=== PATIENT | female | born 1960 | race Caucasian/White ===

== ENCOUNTER 2017-06-02 15:16 | Outpatient (CLI) | payer OTHER ==
--- NOTE | 2017-06-02 17:58 | MRI ---
MRI RIGHT SHOULDER 06/02/17 HISTORY: Right shoulder pain, M25.511. COMPARISON: None. FINDINGS: BICEPS TENDON: There is a chronic rupture of the extra-articular biceps tendon with tendon retracted along the anter ior humeral shaft. There is a cap between tendinous tissue approximately 5.5 cm with tendon seen on t he coronal images at the proximal diaphysis. There is extensive tendinosis of the intra-articular bic eps tendon. GLENOID LABRUM: There is severe degenerative tearing throughout the superior labrum extending to the posterior superi or labrum extending to the posterior superior labrum. ROTATOR CUFF: Extensive tendinosis of the subscapularis with thickening. There is undersurface partial tearing of t he supraspinatus and infraspinatus tendons just proximal to the footprint approximately 30-40% unders urface partial tearing. No full thickness perforation. There is bursal surface fraying of the supraspinatus tendon, thickening coracoacromial ligament and k eel osteophyte. The subacromial space is narrowed approximately 5 mm. BONES: Large subchondral cyst of the lesser tuberosity indicating a chronic increased motion of the biceps t endon likely before it had torn. MUSCLES: Muscle bulk is normal. IMPRESSION: 1. Rupture of the biceps tendon at the intertubercular groove with a 5.5 cm gap. The intra-artic ular tendon fibers are severely tendinotic with fibers extending proximal to the intertubercular groo ve before the gap is seen. 2. Severe tendinosis of the subscapularis extensive interstitial tearing. 3. 30-40% undersurface partial tearing of the supraspinatus and infraspinatus tendons just proxi mal to the footprint. No full thickness perforation. 4. Moderate bursal surface fraying of the supraspinatus tendon due to thickened coracoacromial l igament as well as keel osteophyte. 5. Moderate degenerative disease acromioclavicular joint. 6. Large subchondral cyst lesser tuberosity likely sequela of chronic motion of the biceps tendo n before it had torn. POS: [id number]
== END 2017-06-02 15:17 | disposition home or self-care (01) ==
LOC: MRI 15:16
PROVIDERS: ATTEND Orthopaedic Surgery
DX: M25.511 Pain in right shoulder (principal); S46.211A Strain of muscle, fascia and tendon of other parts of biceps, right arm, initial encounter; S46.811A Strain of other muscles, fascia and tendons at shoulder and upper arm level, right arm, initial encounter; M25.711 Osteophyte, right shoulder; M19.011 Primary osteoarthritis, right shoulder; M67.88 Other specified disorders of synovium and tendon, other site

== ENCOUNTER 2017-09-07 08:44 | Outpatient (CLI) | payer OTHER ==
--- NOTE | 2017-09-07 14:47 | MMO ---
BILATERAL DIGITAL SCREENING MAMMOGRAMS: Date: 09/07/17 This patient's mammogram was interpreted with the assistance of computer-aided detection. Comparison made with exams of 04/23/15 and 04/05/14. FINDINGS: There are scattered fibroglandular densities. No suspicious masses, calcifications, or architectural distortion seen. IMPRESSION: BIRADS 1: Negative Return to annual mammographic screening. POS: SHAYY
== END 2017-09-07 08:45 | disposition home or self-care (01) ==
LOC: SCSMAMMO 08:44
PROVIDERS: ATTEND Family Medicine
DX: Z12.31 Encounter for screening mammogram for malignant neoplasm of breast (principal)
CPT/HCPCS: 77067

== ENCOUNTER 2018-01-07 12:21 | Outpatient (CLI) | payer OTHER ==
[2018-01-07 13:20] LABS: #Basophils 0.1 thou/uL (0.0-0.2); #Eosinphils 0.3 thou/uL (0.0-0.7); #Lymphocytes 3.4 thou/uL (1.20-3.40); #Monocytes 0.7 thou/uL (0.11-0.59); #Neutrophils 5.5 thou/uL (1.40-6.50); %Basophils 0.9 % (0.0-1.0); %Eosinophils 2.8 % (0.0-10.0); %Lymphocytes 34.1 % (21.0-51.0); %Monocytes 7.2 % (0.0-10.0); %Neutrophils 55.1 % (42.0-75.0); Hemoglobin 14.5 g/dL (12.0-16.0); Mean Corpuscular HGB CONC 33.9 g/dL (32.0-36.0); Mean Corpuscular Hemoglobin 33.7 pg (27.0-31.0); Mean Corpuscular Volume 99.4 fL (78.0-98.0); Mean Platelet Volume 8.2 fL (7.4-10.4); Platelet Count 289 thou/uL (130-400); RBC Distribution Width 10.4 % (11.5-14.5); Red Blood Cell (RBC) Count 4.29 mill/uL (4.20-5.40); White Blood Cell (WBC) Count 9.9 thou/uL (4.8-10.8)
[2018-01-07 13:41] LABS: Anion Gap 10 mmol/L (10-20); BUN (Urea Nitrogen) 16 mg/dL (9.8-20.1); Calc. Creatinine Clearance 0 mL/min (70-130); Calcium 9.5 mg/dL (7.8-10.44); Carbon Dioxide 27 mmol/L (22-29); Chloride 103 mmol/L (98-107); Estimated GFR-MDRD 64; Glucose 122 mg/dL (70-105); Potassium 3.9 mmol/L (3.5-5.1); Sodium 136 mmol/L (136-145)
== END 2018-01-07 12:22 | disposition home or self-care (01) ==
LOC: LABBT 12:21
PROVIDERS: ATTEND Orthopaedic Surgery
DX: Z01.812 Encounter for preprocedural laboratory examination (principal); M75.101 Unspecified rotator cuff tear or rupture of right shoulder, not specified as traumatic
CPT/HCPCS: 80048; 85025; 93005; 93010

== ENCOUNTER 2018-01-14 06:47 | Day surgery (SDC) | payer OTHER ==
[2018-01-07 12:28] VITALS: BMI 23.0
[2018-01-14] MEDS ORDERED: CEFAZOLIN/Water 2 GM/20 ML SYRINGE ONE (07:31)
[2018-01-14] MEDS ORDERED: Midazolam HCl 2 mg/2 ml Vial ONE ×2 (07:37→08:18)
[2018-01-14] MEDS ORDERED: Fentanyl 100 MCG/2 ML VIAL ONE ×4 (07:37→11:45)
[2018-01-14] MEDS ORDERED: Ropivacaine 0.5% HCl/PF (150 MG/30 ML VIAL) ONE (08:14)
[2018-01-14] MEDS ORDERED: Ropivacaine 0.2% HCl/PF (40 MG/20 ML VIAL) ONE (08:14)
[2018-01-14] MEDS ORDERED: Ropivacaine 0.2% 550 ML 550 ML NERVE BLCK SCH (08:21)
[2018-01-14] MEDS ORDERED: traMADol HCl 50 MG TAB PO PRN ×2 (08:21)
[2018-01-14] MEDS ORDERED: Zolpidem Tartrate 5 MG TAB PO PRN (08:21)
[2018-01-14] MEDS ORDERED: Ondansetron HCl/PF 4 MG/2 ML Vial IVP PRN (08:21)
[2018-01-14] MEDS ORDERED: HYDROcodone/Acetaminophen 10/325 mg Tablet PO PRN ×2 (08:21)
[2018-01-14] MEDS ORDERED: Promethazine HCl 25 MG/ML VIAL IM PRN (08:21)
[2018-01-14] MEDS ORDERED: Ketorolac Tromethamine 30 MG/ML VIAL IVP PRN (08:21)
[2018-01-14] MEDS ORDERED: Fentanyl 100 MCG/2 ML VIAL IV PRN (08:22)
--- NOTE | 2018-01-14 11:32 | OP ---
DATE OF PROCEDURE: 01/14/2018 PREOPERATIVE DIAGNOSES: Rotator cuff tear right shoulder with impingement. POSTOPERATIVE DIAGNOSES: Rotator cuff tear right shoulder with impingement. PROCEDURE: Arthroscopic subacromial decompression, arthroscopic rotator cuff repair. SURGEON: Saurav Gates M.D. ANESTHESIA: General. BLOOD LOSS: Minimal. SPECIMENS: None. DRAINS: None. COMPLICATIONS: None. NARRATIVE REPORT: The patient was taken to the operating room where general anesthesia was induced. Placed the patient in the left lateral decubitus position. Right arm was placed in 15 pounds of tra ction. Scope was placed in the glenohumeral joint. There was no arthritis, the biceps tendon was co mpletely avulsed and there was no remaining tendon in the joint, so therefore no tenotomy or tenodesi s was indicated. Full thickness rotator cuff tear was identified. Scope was placed in the subacromi al bursa, there was very thick tenacious bursitis. Bursectomy was performed. CA ligament was taken down. Anterior inferior acromioplasty was performed. I freshened up the greater tuberosity. I plac ed a corkscrew suture device through the greater tuberosity. Sutures passed through the rotator cuff and tied with a good watertight repair then reinforced with a double row technique using a SwiveLock . Shoulder was then drained. Portals closed with nylon suture. Sterile dressings applied. There w ere no complications.
[2018-01-14] MEDS ORDERED: Ketorolac Tromethamine 30 MG/ML VIAL ONE (11:47)
[2018-01-14] MEDS ORDERED: PROPOFOL 200 MG/20 ML VIAL ONE (11:58)
[2018-01-14] MEDS ORDERED: Ondansetron HCl/PF 4 MG/2 ML Vial ONE (11:58)
== END 2018-01-14 13:25 | disposition home or self-care (01) ==
LOC: SDC 06:47
PROVIDERS: ATTEND Orthopaedic Surgery
PROC: 0LM14ZZ Reattachment of Right Shoulder Tendon, Percutaneous Endoscopic Approach (ICD-10-PCS; principal; 2018-01-14)
PROC: 0RNJ4ZZ Release Right Shoulder Joint, Percutaneous Endoscopic Approach (ICD-10-PCS; principal; 2018-01-14)
DX: M75.121 Complete rotator cuff tear or rupture of right shoulder, not specified as traumatic (principal); M75.41 Impingement syndrome of right shoulder; M75.51 Bursitis of right shoulder; S46.191A Other injury of muscle, fascia and tendon of long head of biceps, right arm, initial encounter; K21.9 Gastro-esophageal reflux disease without esophagitis; E78.5 Hyperlipidemia, unspecified; G47.00 Insomnia, unspecified; F32.9 Major depressive disorder, single episode, unspecified; M81.0 Age-related osteoporosis without current pathological fracture; F17.210 Nicotine dependence, cigarettes, uncomplicated; Z79.82 Long term (current) use of aspirin; Z79.899 Other long term (current) drug therapy
CPT/HCPCS: 96374; A4306; C1713; G8984-GP-CK; G8985-GP-CK; G8986-GP-CK; J1885; J2250; J2405; J2704; J2795; J3010

== ENCOUNTER 2019-09-29 05:38 | Outpatient (CLI) | payer OTHER ==
[2019-09-29 18:09] LABS: #Basophils 0.1 thou/uL (0.0-0.2); #Eosinphils 0.5 thou/uL (0.0-0.7); #Lymphocytes 3.4 thou/uL (1.20-3.40); #Monocytes 0.8 thou/uL (0.11-0.59); #Neutrophils 5.2 thou/uL (1.40-6.50); %Basophils 1.5 % (0.0-1.0); %Eosinophils 4.7 % (0.0-10.0); %Lymphocytes 34.1 % (21.0-51.0); %Monocytes 8.2 % (0.0-10.0); %Neutrophils 51.6 % (42.0-75.0); Hemoglobin 14.7 g/dL (12.0-16.0); Mean Corpuscular HGB CONC 34.5 g/dL (32.0-36.0); Mean Corpuscular Hemoglobin 34.1 pg (27.0-31.0); Mean Corpuscular Volume 98.8 fL (78.0-98.0); Mean Platelet Volume 8.6 fL (7.4-10.4); Platelet Count 258 thou/uL (130-400); RBC Distribution Width 10.3 % (11.5-14.5); Red Blood Cell (RBC) Count 4.32 mill/uL (4.20-5.40)
[2019-09-29 18:22] LABS: Bacteria/HPF None Seen HPF (None Seen); Bilirubin Negative (Negative); Blood, Urine Negative (Negative); Clarity Clear (Clear); Glucose, Urine (Dipstick) Normal (Negative); Ketone, Urine Negative (Negative); Leukocyte Negative Leu/uL (Negative); Nitrite Negative (Negative); Protein, Urine (Dipstick) Negative (Neg-Trace); RBC/HPF 0-3 HPF (0-3); Specific Gravity, Urine 1.009 (1.002-1.036); Squamous Epithelial None Seen HPF (0-3); Urobilinogen Normal mg/dL (Less than 2); WBC/HPF 0-3 HPF (0-3); pH, Urine 5.5 (5.0-9.0)
[2019-09-30 14:12] LABS: SARS-CoV-2 MS2 Positive; SARS-CoV-2 N Gene Negative; SARS-CoV-2 S Gene Negative; SARS-CoV-2 orf1ab Negative
--- NOTE | 2019-10-03 10:12 | EKG ---
Test Reason : FOR 10/03 Blood Pressure : / mmHG Vent. Rate : 073 BPM Atrial Rate : 073 BPM P-R Int : 150 ms QRS Dur : 078 ms QT Int : 380 ms P-R-T Axes : 051 060 048 degrees QTc Int : 418 ms Normal sinus rhythm ST abnormality, possible digitalis effect Abnormal ECG When compared with ECG of 07-JAN-2018 12:54, No significant change was found Confirmed by DAMIAN TIJERINA (2) on 10/03/2019 10:12:12 AM Referred By: Confirmed By:DAMIAN TIJERINA
== END 2019-09-29 05:39 | disposition home or self-care (01) ==
LOC: LABBT 05:38
PROVIDERS: ATTEND Orthopaedic Surgery Hand Surgery
DX: Z01.812 Encounter for preprocedural laboratory examination (principal); Z11.59 Encounter for screening for other viral diseases; M18.11 Unilateral primary osteoarthritis of first carpometacarpal joint, right hand
CPT/HCPCS: 81001; 85025; 87635; 93005; 93010; U0003

== ENCOUNTER 2019-10-04 07:20 | Day surgery (SDC) | payer OTHER ==
[2019-09-27 14:14] VITALS: BMI 22.1
[2019-10-04] MEDS ORDERED: Midazolam HCl 2 mg/2 ml Vial ONE ×2 (07:26→09:58)
[2019-10-04] MEDS ORDERED: Fentanyl 100 MCG/2 ML VIAL ONE ×2 (07:27→09:58)
[2019-10-04] MEDS ORDERED: Lidocaine 1% (PF) 30 ML VIAL ONE (08:21)
[2019-10-04] MEDS ORDERED: Bupivacaine PF 0.5% 30 ML VIAL ONE (10:04)
[2019-10-04] MEDS ORDERED: Neomycin-Polymyxin 1 ML AMP ONE (10:04)
[2019-10-04] MEDS ORDERED: Betamet Acet/Betamet Na Ph 30 MG/5 ML VIAL ONE (10:04)
[2019-10-04] MEDS ORDERED: Bacitracin Zinc Ointment 30 gm TUBE ONE (10:04)
[2019-10-04] MEDS ORDERED: Sodium Chloride 0.9% 20 ML ONE (10:05)
[2019-10-04] MEDS ORDERED: Ondansetron PF 4 MG/2 ML Vial ONE (12:58)
[2019-10-04] MEDS ORDERED: PROPOFOL 200 MG/20 ML VIAL ONE (12:58)
[2019-10-04] MEDS ORDERED: Ketorolac Tromethamine 30 MG/ML VIAL ONE (12:58)
[2019-10-04] MEDS ORDERED: PHENYLEPHRINE-NS 100 MCG/ML 10 ML SYRINGE ONE (12:58)
[2019-10-04] MEDS ORDERED: Dexamethasone 20 MG/5 ML VIAL ONE (12:58)
[2019-10-04] MEDS ORDERED: Glycopyrrolate 0.2 MG/ML 5 ML SYRINGE ONE (12:58)
[2019-10-04] MEDS ORDERED: Bupivacaine HCl 0.5%/Epinephrine 1:200,000/PF 30 ml Vial ONE (12:58)
[2019-10-04] MEDS ORDERED: Lidocaine 1% PF 5 ML VIAL ONE (12:58)
--- NOTE | 2019-10-04 14:47 | RAD ---
RIGHT HAND 2 VIEWS: Date: 10/04/2019 HISTORY: Joint repair. FINDINGS: These are intraoperative films that show removal of the trapezium. IMPRESSION: Intraoperative films showing resection of the trapezium. POS: AH
--- NOTE | 2019-10-05 08:13 | OP ---
DATE OF PROCEDURE: 10/04/2019 PREOPERATIVE DIAGNOSES: 1. Right carpal tunnel syndrome. 2. Right thumb osteoarthritis carpometacarpal. FINDINGS AND POSTOPERATIVE DIAGNOSES: 1. Right carpal tunnel syndrome with almost a 1 cm area of stippling and hourglass formation of the median nerve and in the carpal canal. 2. Greater than 80% loss of trapezium side and 70% loss of thumb side basilar osteoarthritis with large osteophytes on both sides. 3. Large osteophyte completely encasing the flexor carpi radialis and trapezium requiring release. PROCEDURES PERFORMED: 1. Trapeziectomy, complete. 2. Ligament replacement with tendon interposition and arthroplasty, thumb carpometacarpal joint, right. 3. Right thumb flexor tendon transfer, flexor carpi radialis. 4. Carpal tunnel release. 5. C-arm supervision. TOURNIQUET TIME: 120 minutes. ESTIMATED BLOOD LOSS: Less than or equal to 20 mL. INJECTABLES: The patient had an excellent function with a block done by Anesthesia prior to procedure. DESCRIPTION OF PROCEDURE: After successful general LMA technique, the limb was prepped and draped. Time-out was done appropriately. The carpal tunnel release incision was outlined using Irizarry's cardinal line at the distal end, proximal end, 6 mm distal to the volar wrist flexion crease in line with the ring finger. We also outlined a J-shaped incision over the carpometacarpal joint of the left thumb with 2 incisions, each one-third of the way from each other along the flexor carpi radialis for harvest. We carried the incision through skin and subcutaneous tissue after exsanguinating the limb and inflating the tourniquet to 250 mmHg pressure. We first then performed the carpal tunnel release using the incision, where we carried it through skin and subcutaneous tissue, and visualized the transverse carpal ligament. We then placed a self-retaining Weitlaner inside, obtained about 30 degrees of wrist dorsiflexion, and then identified transverse carpal ligaments distal . We entered the transverse carpal ligament with a [place] blade from the midportion distally and opened this completely. We then opened it from the midportion proximally, where we found the stippling and hourglass formation as described above. The transverse carpal ligament was completely cut, the nerve was freed, and there was no synovitis, so no synovectomy was accomplished. We then dripped 5 mL of Celestone slowly over the area where the nerve was most flattened and then closed the incision with interrupted 4-0 nylon in a mattress pattern. We then made a J-shaped hockey stick incision through skin and subcutaneous tissue between the flexor carpi radialis transfer point onto the volar wrist flexion crease all the way to the midportion of the CMC joint and the MP joint on the thumb. We carried through skin and subcutaneous tissue, and then we dissected bluntly the radial nerve branches and them from the more ulnar branches. Then, we released the muscle and fascial bed from the thenar muscle origin, leaving 2.5 mm of fascia still on the metacarpal, identified the flexor carpi radialis, identified the trapezium, and placed a guidewire inside this. We then immediately were able to bring the C-arm onto the field and confirm we were in the trapezium. We released the capsule first at the scaphotrapezial joint and then proceeded radially to release it, it from the trapeziotrapezoidal joint and then we visualized the flexor carpi radialis on the direct radial side of the trapezium. It was encased in a very thick osteophyte requiring multiple delicate dissections, almost a millimeter at a time then released bone and a millimeter at a time until we had released it from this radial wall. We then released the capsule and slowly lifted the trapezium out. Radiographs before removing it confirmed we were in the correct proper bone. Trapezial chondral surface with the base of the thumb was 90% denuded of all articular cartilage as was the 70% loss of cartilage on the base of thumb side. There was large osteophyte on the base of the thumb, which had to be trimmed with . We then placed 2 heavy Prolene sutures deep in the posterior capsule and preserved them. We then used a cannulated drill to drill a hole from the center of the radial side wall of the thumb metacarpal base, 1 cm from the articular surface and into the junction of the articular surface and the metaphyseal bone. Once we had done this, a 2.7 drill, we then replaced it with another guidewire and drilled a 3.5 hole in the same pattern. Then, we enlarged the hole slightly with curettes progressively. We then entered the 2 incisions of the forearm and harvested the FCR tendon. It was then elevated, trimmed about one-third, and then passed from inside the wrist joint out the lateral wall of the trapezium of the thumb base. We then reduced it anatomically and held it with one large 0.045 K-wire. There was no undue motion and then we tied the newly secured base of the thumb metacarpal and the newly passed tendon with tendon x2 to the metacarpal, x2 to the abductor pollicis longus and then we tied it on the deep capsule, and then used the 2 heavy ulnarly based 3-0 Prolenes to create a double technique anchovy and buried deep in the capsule. We tied the sutures and continued to hold the burial. We then released the tourniquet and obtained hemostasis. We irrigated and began to close the capsule remnant over the tendon interposition piece. We then were able to obtain hemostasis and close the thenar muscle back to its origin with a heavy 2-0 Vicryl. We then cut the wire from the thumb to the index metacarpal, 5 mm protruding, and then we pushed this through the skin away from the primary suture line. We obtained hemostasis and closed the primary suture line with a running 4-0 Monocryl. We used a running 3-0 Monocryl to help close the donor site for the tendon incisions along with augmenting with 4-0 nylon. Now, we placed bacitracin, bulky dressing, Adaptic, 4 x 4, Kerlix, and a sugar-tong splint on the small finger ray wound metacarpal. The patient left the operating room without evidence of anesthetic or operative complication. Job ID: [id number]
== END 2019-10-04 15:20 | disposition home or self-care (01) ==
LOC: SDC 07:20
PROVIDERS: ATTEND Orthopaedic Surgery Hand Surgery
PROC: 01N50ZZ Release Median Nerve, Open Approach (ICD-10-PCS; principal; 2019-10-04)
PROC: 3E0T3BZ Introduction of Anesthetic Agent into Peripheral Nerves and Plexi, Percutaneous Approach (ICD-10-PCS; principal; 2019-10-04)
PROC: 0LX70ZZ Transfer Right Hand Tendon, Open Approach (ICD-10-PCS; principal; 2019-10-04)
PROC: 0RUS07Z Supplement Right Carpometacarpal Joint with Autologous Tissue Substitute, Open Approach (ICD-10-PCS; principal; 2019-10-04)
DX: M18.11 Unilateral primary osteoarthritis of first carpometacarpal joint, right hand (principal); G56.03 Carpal tunnel syndrome, bilateral upper limbs; G56.23 Lesion of ulnar nerve, bilateral upper limbs; G89.18 Other acute postprocedural pain; K21.9 Gastro-esophageal reflux disease without esophagitis; F17.210 Nicotine dependence, cigarettes, uncomplicated; E78.5 Hyperlipidemia, unspecified; G47.00 Insomnia, unspecified; M81.0 Age-related osteoporosis without current pathological fracture; F32.9 Major depressive disorder, single episode, unspecified; Z79.82 Long term (current) use of aspirin; Z79.899 Other long term (current) drug therapy
CPT/HCPCS: 76000; C1713; J0670; J0690; J0702; J1100; J1885; J2001; J2250; J2405; J2704; J3010; S0020

== ENCOUNTER 2022-01-16 16:00 | Outpatient (CLI) | payer BC | END 2022-01-16 16:01 | disposition home or self-care (01) | LOC: CTENTCT 16:00 | PROVIDERS: ATTEND Student in an Organized Health Care Education/Training Program | DX: J32.9 Chronic sinusitis, unspecified (principal) | CPT/HCPCS: 70486 ==

== ENCOUNTER 2022-02-27 14:27 | Outpatient (CLI) | payer BC ==
[2022-02-27 16:03] LABS: Hemoglobin 13.9 g/dL (12.0-15.5)
[2022-02-27 16:20] LABS: Anion Gap 13 mmol/L (10-20); BUN (Urea Nitrogen) 14 mg/dL (9.8-20.1); Calc. Creatinine Clearance 0 mL/min (70-130); Calcium 9.6 mg/dL (7.8-10.44); Carbon Dioxide 26 mmol/L (23-31); Chloride 104 mmol/L (98-107); Estimated GFR 78; Glucose 104 mg/dL (80-115); Potassium 3.9 mmol/L (3.5-5.1); Sodium 139 mmol/L (136-145)
== END 2022-02-27 14:28 | disposition home or self-care (01) ==
LOC: LABBT 14:27
PROVIDERS: ATTEND Student in an Organized Health Care Education/Training Program
DX: Z01.818 Encounter for other preprocedural examination (principal); J32.9 Chronic sinusitis, unspecified; R09.81 Nasal congestion
CPT/HCPCS: 80048; 85014; 85018; 93005; 93010

== ENCOUNTER 2022-03-04 09:33 | Day surgery (SDC) | payer BC ==
[2022-02-27 16:09] VITALS: BMI 22.3
[2022-03-04] MEDS ORDERED: Oxymetazoline HCl 0.05% (30 ML BOT) ONE (10:06)
[2022-03-04] MEDS ORDERED: fentaNYL PF 100 MCG/2 ML SYRINGE ONE (10:11)
[2022-03-04] MEDS ORDERED: MINERAL OIL/WHITE PETROLATUM 3.5 GM TUBE ONE (10:18)
[2022-03-04] MEDS ORDERED: Mineral Oil Sterile 10 ML VIAL ONE (12:32)
[2022-03-04] MEDS ORDERED: Sodium Chloride 0.9% 100 ML ONE (13:21)
[2022-03-04] MEDS ORDERED: CEFAZOLIN 2 GM VIAL ONE (13:21)
[2022-03-04] MEDS ORDERED: PROPOFOL 200 MG/20 ML VIAL ONE (13:33)
[2022-03-04] MEDS ORDERED: Ondansetron PF 4 MG/2 ML Vial ONE (13:33)
[2022-03-04] MEDS ORDERED: ePHEDrine 50 MG/ML VIAL ONE (13:33)
[2022-03-04] MEDS ORDERED: Dexamethasone 20 MG/5 ML VIAL ONE (13:33)
[2022-03-04] MEDS ORDERED: Phenylephrine 10 MG/ML VIAL ONE (13:33)
[2022-03-04] MEDS ORDERED: NEOSTIGMINE 3 MG/3 ML SYR 3 MG/3 ML SYRINGE ONE (13:33)
[2022-03-04] MEDS ORDERED: Rocuronium Bromide 10 MG/ML (10ML VIAL) ONE (13:33)
[2022-03-04] MEDS ORDERED: FENTANYL 50 MCG/ML 1 ML VIAL ONE ×2 (16:19→16:34)
[2022-03-04] MEDS ORDERED: Hydrocodone-Acetamin 15 ML UDCUP ONE (17:36)
== END 2022-03-04 18:26 | disposition home or self-care (01) ==
LOC: SDC 09:33
PROVIDERS: ATTEND Student in an Organized Health Care Education/Training Program
PROC: 09BW8ZZ Excision of Right Sphenoid Sinus, Via Natural or Artificial Opening Endoscopic (ICD-10-PCS; principal; 2022-03-04)
PROC: 09BX8ZZ Excision of Left Sphenoid Sinus, Via Natural or Artificial Opening Endoscopic (ICD-10-PCS; principal; 2022-03-04)
PROC: 8E09XBZ Computer Assisted Procedure of Head and Neck Region (ICD-10-PCS; principal; 2022-03-04)
PROC: 09BT8ZZ Excision of Left Frontal Sinus, Via Natural or Artificial Opening Endoscopic (ICD-10-PCS; principal; 2022-03-04)
PROC: 09TV8ZZ Resection of Left Ethmoid Sinus, Via Natural or Artificial Opening Endoscopic (ICD-10-PCS; principal; 2022-03-04)
PROC: 09TU8ZZ Resection of Right Ethmoid Sinus, Via Natural or Artificial Opening Endoscopic (ICD-10-PCS; principal; 2022-03-04)
PROC: 09BS8ZZ Excision of Right Frontal Sinus, Via Natural or Artificial Opening Endoscopic (ICD-10-PCS; principal; 2022-03-04)
PROC: 09BQ8ZZ Excision of Right Maxillary Sinus, Via Natural or Artificial Opening Endoscopic (ICD-10-PCS; principal; 2022-03-04)
PROC: 09BR8ZZ Excision of Left Maxillary Sinus, Via Natural or Artificial Opening Endoscopic (ICD-10-PCS; principal; 2022-03-04)
DX: J32.9 Chronic sinusitis, unspecified (principal); J33.8 Other polyp of sinus; J34.3 Hypertrophy of nasal turbinates; K21.9 Gastro-esophageal reflux disease without esophagitis; E78.5 Hyperlipidemia, unspecified; G47.00 Insomnia, unspecified; M81.0 Age-related osteoporosis without current pathological fracture; Z79.52 Long term (current) use of systemic steroids; Z79.82 Long term (current) use of aspirin; Z79.899 Other long term (current) drug therapy
CPT/HCPCS: C1726; J1100; J2370; J2405; J2704; J3010; J3490; J7643

== ENCOUNTER 2024-12-14 15:39 | Inpatient (IN) | payer BC, MEDICARE ==
[2024-12-14 17:02] VITALS: BMI 22.4
[2024-12-14] MEDS ORDERED: Ondansetron PF 4 MG/2 ML Vial IVP PRN (18:45)
[2024-12-14] MEDS ORDERED: Acetaminophen 325 MG TAB PO PRN (18:45)
[2024-12-14] MEDS ORDERED: hydrALAZINE 20 MG/ML VIAL SLOW IVP PRN (20:25)
[2024-12-14] MEDS ORDERED: Aspirin 325 MG TAB PO SCH (20:45)
[2024-12-14] MEDS: Aspirin 81 mg Enteric Coated Tablet PO SCH (22:51)
[2024-12-15 04:46] LABS: Cardiac Risk 4.8 (Less than 4.5); Cholesterol 229.0 mg/dl (< 200 Desired); HDL Cholesterol 48.0 mg/dL (>60 Neg Risk); LDL Cholesterol, Calculated 151.0 mg/dL; Triglycerides 150.0 mg/dL (Less than 150)
[2024-12-15] MEDS: Acetaminophen 325 MG TAB PO PRN (09:25)
[2024-12-15] MEDS: Enoxaparin 40 MG (0.4 mL) SYRINGE SC SCH (09:30)
[2024-12-15] MEDS ORDERED: Ondansetron PF 4 MG/2 ML Vial IVP PRN (11:07)
[2024-12-15] MEDS: HYDROcodone/Acetaminophen 5/325 mg Tablet PO PRN (13:29)
[2024-12-16 04:07] LABS: #Basophils 0.04 10x3/uL (0.0-0.2); #Eosinophils 0.21 10x3/uL (0.0-0.7); #Monocytes 1.00 10x3/uL (0.11-0.59); #Neutrophils 4.57 10x3/uL (1.40-6.50); %Basophils 0.5 % (0.0-1.0); %Eosinophils 2.4 % (0.0-10.0); %Lymphocytes 34.2 % (21.0-51.0); %Monocytes 11.3 % (0.0-10.0); %Neutrophils 51.5 % (42.0-75.0); Hematocrit 40.0 % (36.0-47.0); Hemoglobin 13.6 g/dL (12.0-16.0); Mean Corpuscular Hemoglobin 32.5 pg (27.0-31.0); Mean Corpuscular Volume 95.5 fL (78.0-98.0); Platelet Count 239 10x3/uL (130-400); Red Blood Cell (RBC) Count 4.19 mill/uL (4.20-5.40); White Blood Cell (WBC) Count 8.86 10x3/uL (4.8-10.8)
[2024-12-16 04:27] LABS: Anion Gap 12 mmol/L (10-20); BUN (Urea Nitrogen) 11 mg/dL (9.8-20.1); Calc. Creatinine Clearance 68 mL/min (70-130); Calcium 9.1 mg/dL (7.8-10.44); Carbon Dioxide 26 mmol/L (23-31); Chloride 103 mmol/L (98-107); Glucose 106 mg/dL (80-115); Potassium 4.3 mmol/L (3.5-5.1); Sodium 137 mmol/L (136-145)
[2024-12-16] MEDS ORDERED: HYDROcodone/Acetaminophen 5/325 mg Tablet PO PRN (09:03)
[2024-12-16] MEDS: Aspirin 81 mg Enteric Coated Tablet PO SCH (09:48)
[2024-12-16 17:13] VITALS: BP 137/82; TEMP 98
== END 2024-12-16 18:00 | disposition home or self-care (01) | DRG 65 ==
LOC: PCU 16:47 → OBSVTOIN 12-15 11:05
PROVIDERS: ADMIT Internal Medicine; ATTEND Internal Medicine
PROC: 4A00X4Z Measurement of Central Nervous Electrical Activity, External Approach (ICD-10-PCS; principal; 2024-12-15)
DX: I63.9 Cerebral infarction, unspecified (principal); G45.8 Other transient cerebral ischemic attacks and related syndromes; R29.700 NIHSS score 0; I10 Essential (primary) hypertension; H54.40 Blindness, one eye, unspecified eye; R41.82 Altered mental status, unspecified; E78.00 Pure hypercholesterolemia, unspecified; R51.9 Headache, unspecified; M19.90 Unspecified osteoarthritis, unspecified site; F17.200 Nicotine dependence, unspecified, uncomplicated; Z79.82 Long term (current) use of aspirin; Z98.890 Other specified postprocedural states; Z98.42 Cataract extraction status, left eye; Z79.899 Other long term (current) drug therapy
CPT/HCPCS: 36415; 70551; 80048; 80061; 83036; 84443; 85025; 93306; 95700; 95711; 95957; J1650

== ENCOUNTER 2025-02-06 06:00 | Day surgery (SDC) | payer BC, MEDICARE ==
[2025-01-30 10:12] VITALS: BMI 23.3
[2025-02-06] MEDS ORDERED: PROPOFOL 200 MG/20 ML VIAL ONE (07:24)
[2025-02-06] MEDS ORDERED: Lidocaine 1% PF 5 ML VIAL ONE (07:24)
== END 2025-02-06 09:04 | disposition home or self-care (01) ==
LOC: SDC 06:00
PROVIDERS: ATTEND Internal Medicine Cardiovascular Disease
DX: I48.91 Unspecified atrial fibrillation (principal); I63.9 Cerebral infarction, unspecified; E78.00 Pure hypercholesterolemia, unspecified; Z87.891 Personal history of nicotine dependence
CPT/HCPCS: 93005; 93010; 93312; J2704